=== PATIENT | female | born 1980 | race Caucasian/White ===

== ENCOUNTER 2022-10-03 23:42 | Emergency (ER) | payer OTHER ==
[~2022-10-03] VITALS: Ht 152.4 cm; Wt 59.0 kg
[2022-10-04 00:32] VITALS: BP_SYST 107
[2022-10-04 01:22] VITALS: BP_SYST 130
== END 2022-10-04 01:22 ==
LOC: SED 23:42
DX: Z02.89 Encounter for other administrative examinations (principal)
CPT/HCPCS: 99283